=== PATIENT | male | born 1955 | race Caucasian/White ===

== ENCOUNTER 2016-06-30 23:18 | Emergency (ER) | payer MEDICAID ==
[~2016-06-30] VITALS: Ht 182.9 cm; Wt 158.8 kg
[2016-06-30] MEDS ORDERED: Albuterol ud Inhalation HHN ONE (23:45)
--- NOTE | 2016-07-01 00:25 | Emergency Room Report ---
History of Present Illness General Chief Complaint: Dyspnea/Respdistress Source: Patient, EMS Present Illness HPI Is a 60-year-old male with a history hypertension, diabetes, and recent diagnosis of obstructive sleep apnea. He's not on CPAP yet. Patient presents with chief complaint shortness of breath. Worse when lays down. Worse when he coughed. Denies any fever or chills. Went to a deep breath he fell he has a cough. No swelling. No nausea no vomiting. Has chest tightness. Similar symptom in the past. No other complaint. Allergies: Coded Allergies: No Known Allergies (Unverified , 06/30/16) Patient History Past Medical History: see triage record, old chart reviewed, DM, HTN, psych hx Past Surgical History: other Pertinent Family History: none Social History: Denies: drug use, smoking Immunizations: other Reviewed Nursing Documentation: PMH: Agreed, PSxH: Agreed Nursing Documentation-PMH Hx Hypertension: Yes Hx Diabetes: Yes Review of Systems Eye: Denies: blurred vision, eye pain ENT: Denies: ear pain, nose congestion, throat swelling Respiratory: Reports: SOTO, cough, shortness of breath Cardiovascular: Denies: chest pain, palpitations Gastrointestinal: Denies: abdominal pain, diarrhea, nausea, vomiting Musculoskeletal: Denies: back pain, joint pain Skin: Denies: rash Neurological: Denies: headache, numbness Endocrine: Denies: increased thirst, increased urine Hematologic/Lymphatic: Denies: easy bruising All Other Systems: negative except mentioned in HPI Physical Exam Vital Signs Date Time Temp Pulse Resp B/P Pulse Ox O2 Delivery O2 Flow Rate FiO2 06/30/16 23:19 97.9 82 18 143/84 99 Room Air vitals with hypertension Sp02 EP Interpretation: reviewed, normal General Appearance: well appearing, no apparent distress, alert, obese Head: normocephalic, atraumatic Eyes: bilateral eye EOMI, bilateral eye PERRL ENT: hearing grossly normal, normal pharynx Neck: full range of motion, supple, no meningismus Respiratory: chest non-tender, lungs clear, normal breath sounds, other - Coughing with inspiration Cardiovascular #1: regular rate, rhythm, no murmur Gastrointestinal: normal bowel sounds, non tender, no mass, no organomegaly, no bruit, non-distended, other - protruberant, overweight Musculoskeletal: back normal, gait/station normal, normal range of motion, other - Trace edema Neurologic: alert, oriented x3 Psychiatric: mood/affect normal Skin: warm/dry Medical Decision Making Diagnostic Impression: Primary Impression: Acute bronchitis Qualified Codes: J20.9 - Acute bronchitis, unspecified Additional Impression: Morbid obesity with BMI of 45.0-49.9, adult ER Course Patient present with shortness of breath and cough. This most likely secondary to bronchitis. No evidence of pneumonia. He felt better after breathing treatment. Notice of ACS, PE, dissection to name a few. No evidence of CHF. We'll discharge him. EKG Diagnostic Results Rate: normal Rhythm: NSR ST Segments: no acute changes Rhythm Strip Diag. Results EP Interpretation: yes Rate: 85 Rhythm: NSR, no PVC's, no ectopy Chest X-Ray Diagnostic Results EP Interpretation: Yes Findings: no consolidation, no effusion, no pneumothorax, no acute cardiopulmonary disease Number of Views: 1 Last Vital Signs Date Time Temp Pulse Resp B/P Pulse Ox O2 Delivery O2 Flow Rate FiO2 07/01/16 00:03 87 20 100 Room Air 06/30/16 23:19 97.9 143/84 Status: improved Disposition: HOME, SELF-CARE Condition: Stable Scripts Albuterol Sulfate* (ALBUTEROL SULFATE MDI*) 8.5 Gm Hfa.aer.ad 2 PUFF INH Q4H Y for cough/wheezing, #1 EA 0 Refills Prov: WHIT SALAZAR M.D. 07/01/16 Referrals: [facility],REFERRING (PCP) Additional Instructions: Followup with your DrNigel in 2-5 days. Return if symptom worsen. WHIT SALAZAR M.D. July 01, 2016 00:25
[2016-07-01 00:30] LABS: BASOPHILS % (AUTO) 1.3 % (0.0-2.0); EOSINOPHILS % (AUTO) 4.6 % (0.0-3.0); LYMPHOCYTES % (AUTO) 16.9 % (20.0-45.0); MEAN CORPUSCULAR HEMOGLOBIN 30.4 PG (27.0-31.0); MEAN CORPUSCULAR HGB CONC 35.1 G/DL (32.0-36.0); MEAN CORPUSCULAR VOLUME 86 FL (80-99); MEAN PLATELET VOLUME 7.1 FL (6.5-10.1); MONOCYTES % (AUTO) 6.9 % (1.0-10.0); NEUTROPHILS % (AUTO) 70.3 % (45.0-75.0); PLATELET COUNT 241 K/UL (150-450); RED BLOOD COUNT 4.85 M/UL (4.70-6.10); RED CELL DISTRIBUTION WIDTH 14.8 % (11.6-14.8)
[2016-07-01 00:43] LABS: TROPONIN I < 0.30 ng/mL (<=0.30)
[2016-07-01 00:46] LABS: ALANINE AMINOTRANSFERASE 19 U/L (3-41); ANION GAP 13 (5-15); ASPARTATE AMINO TRANSFERASE 12 U/L (5-40); CARBON DIOXIDE 30 mEQ/L (20-30); CHLORIDE 95 mEQ/L (98-107); CREATININE 1.2 mg/dL (0.7-1.2); GLOMERULAR FILTRATION RATE > 60 mL/min (>60); HEMOLYSIS 4; POTASSIUM 3.5 mEQ/L (3.4-4.9); SODIUM 138 mEQ/L (135-145); TOTAL PROTEIN 6.5 g/dL (6.6-8.7)
[2016-07-01 00:57] LABS: CKMB < 1.5 ng/mL (< 6.7)
[2016-07-01 01:09] VITALS: BP 107/61
[2016-07-01] MEDS ORDERED: ALBUTEROL SULF8.5 GM INH (01:40)
[2016-07-01 01:51] VITALS: BP 107/61
--- NOTE | 2016-07-01 13:17 | Diagnostic Imaging Report ---
Indication: SOB Technique: One view of the chest Comparison: none Findings: The heart is borderline enlarged. Lungs and pleural spaces are clear. Impression: Cardiomegaly. No acute process
== END 2016-07-01 02:00 | disposition home or self-care (01) ==
LOC: EDBD 23:18 → EMR 23:44
DX: J20.9 Acute bronchitis, unspecified (principal); E66.01 Morbid (severe) obesity due to excess calories; Z68.42 Body mass index [BMI] 45.0-49.9, adult; I10 Essential (primary) hypertension; E11.9 Type 2 diabetes mellitus without complications
CPT/HCPCS: 36415; 71010; 80053; 82550; 82553; 83880; 84484; 85025; 93005; 94640; 94664; 99283

== ENCOUNTER 2019-03-07 13:12 | Outpatient (CLI) | payer MEDICARE ==
[~2019-03-07] VITALS: Ht 190.5 cm; Wt 152.9 kg
[~2019-03-07 13:12] MED LIST: ALBUTEROL SULF8.5 GM INH
[2019-03-07] MEDS ORDERED: SPIRONOLACTONE50 MG ORAL (16:05)
[2019-03-07] MEDS ORDERED: ADVIL200 M2 ORAL (16:05)
[2019-03-07] MEDS ORDERED: METFORMIN HCL1000 M1 ORAL (16:05)
[2019-03-07] MEDS ORDERED: JANUVIA100 MG ORAL (16:05)
[2019-03-07] MEDS ORDERED: OMEPRAZOLE20 M2 ORAL (16:05)
[2019-03-07] MEDS ORDERED: DICYCLOMINE HCL10 MG ORAL (16:05)
[2019-03-07] MEDS ORDERED: ROPINIROLE HCL0.5 MG PO (16:05)
[2019-03-07] MEDS ORDERED: LISINOPRIL10 MG ORAL (16:05)
[2019-03-07] MEDS ORDERED: ALLOPURINOL100 M1 ORAL (16:05)
[2019-03-07] MEDS ORDERED: ASPIRIN EC81 MG ORAL (16:05)
[2019-03-07] MEDS ORDERED: MICONAZOLE NITR30 GM TOPIC (16:05)
[2019-03-07] MEDS ORDERED: LEXAPRO20 MG ORAL (16:05)
[2019-03-07] MEDS ORDERED: FUROSEMIDE40 MG ORAL (16:05)
[2019-03-07] MEDS ORDERED: ALBUTEROL SULF8.5 GM INH (16:05)
[2019-03-07] MEDS ORDERED: MINIPRESS5 MG PO (16:05)
[2019-03-07] MEDS ORDERED: ATORVASTATIN CA10 MG ORAL (16:05)
[2019-03-07] MEDS ORDERED: GABAPENTIN600 MG ORAL (16:05)
[2019-03-07] MEDS ORDERED: SEROQUEL XR150 MG ORAL (16:05)
--- NOTE | 2019-03-07 18:46 | Consultation ---
DATE OF CONSULTATION: 03/07/2019 CHIEF COMPLAINT: Referral for screening colonoscopy. PAST MEDICAL HISTORY: 1. Hypercholesterolemia. 2. Hypertension. 3. Diabetes. 4. CHF. 5. Gout. PAST SURGICAL HISTORY: Umbilical hernia, tonsillectomy, back surgery. MEDICATIONS: See medication reconciliation list. FAMILY HISTORY: Noncontributory. SOCIAL HISTORY: The patient denies any tobacco, alcohol, or drug abuse. ALLERGIES: No known allergies. REVIEW OF SYSTEMS: Positive for constipation. Last colonoscopy 8 years ago and the patient had 5 polyps. PHYSICAL EXAMINATION: GENERAL: The patient is afebrile. VITAL SIGNS: Stable. HEENT: Normocephalic and atraumatic. Sclerae are anicteric. NECK: Supple. No evidence of obvious lymphadenopathy. CARDIOVASCULAR: Regular rate and rhythm. Plus S1 and S2. LUNGS: Clear to auscultation bilaterally. ABDOMEN: Positive bowel sounds. Soft and nontender. No rebound. No guarding. No peritoneal sign. EXTREMITIES: No cyanosis, no clubbing, no edema. ASSESSMENT: The patient is a 63-year-old male, needs colonoscopy given history of polyps in the past. Last colonoscopy in 2011. Also, the patient is suffering from chronic constipation. The patient was given prescription for Amitiza 24 mcg p.o. b.i.d. The patient also was given the instruction for the colonoscopy. We are going to schedule him when the authorization is obtained. Norberto Leone M.D. DR: Chiqui JOB#: [id number] CC:
== END 2019-03-07 15:12 | disposition home or self-care (01) ==
LOC: PAN 13:12
DX: K59.00 Constipation, unspecified (principal); Z86.010 Personal history of colon polyps; E78.00 Pure hypercholesterolemia, unspecified; I11.9 Hypertensive heart disease without heart failure; I50.9 Heart failure, unspecified; E11.9 Type 2 diabetes mellitus without complications
CPT/HCPCS: G0463